=== PATIENT | female | born 1985 | race Caucasian/White ===

== ENCOUNTER 2019-12-18 09:57 | Emergency (ER) | payer BC, SELFPAY ==
[2019-12-18 10:09] VITALS: BP 130/72; PULSE 77; RESP 16; TEMP 36.4; O2SAT 100
--- NOTE | 2019-12-18 10:19 | ED.LOWEXIN ---
HPI - Extremity Injury (Lower) General Chief Complaint: Extremity Injury, Lower Stated Complaint: lt leg pain Time Seen by Provider: 12/18/19 10:19 Source: patient and RN notes reviewed History of Present Illness HPI Narrative: Patient is a 34-year-old female presents the urgent care with complaints of left pelvis pain that wraps around the left upper leg. Patient states that on December 09 she was having intercourse with her who pulled her left leg out and she heard a 3 loud pops . Patient states that she has been ambulating and running after 2 small children for the last 10 days without any difficulty. However, patient states she does have some left groin pain at times that wraps around the left upper leg, around to the buttocks. Patient ambulates without difficulty and is currently wearing platform boots. Range of motion to left leg/hip within normal limits. Patient has not been using anything for the pain. Denies any other strenuous activity or known injury. No other acute complaints. No acute distress noted. Patient read the plan of care. Related Data Allergies Allergy/AdvReac Type Severity Reaction Status Date / Time No Known Allergies Allergy Verified 12/18/19 10:09 Review of Systems Review of Systems: Narrative: CONSTITUTIONAL: Denies fever, chills, or sweats. EYES: Denies visual changes, redness, or discharge. ENT: Denies rhinorrhea, congestion, sore throat, or otalgia. CARDIOVASCULAR: Denies chest pain, palpitations, or edema. RESPIRATORY: Denies cough or dyspnea. GASTROINTESTINAL: Denies abdominal pain, nausea, vomiting, or diarrhea. GENITOURINARY: Denies dysuria or hematuria. SKIN: Denies rash or itching. MUSCULOSKELETAL: Denies back pain, joint pain, or myalgia. Reports of mild pain to the left groin/pelvic region that wraps around the left upper leg. NEUROLOGIC: Denies headache, numbness, or weakness. PSYCHIATRIC: Denies anxiety or depression. All other systems reviewed are negative, except as documented in HPI. PMFSH Comments At the time of my signature, I reviewed and agree with the nursing past medical, surgical, social, and family history. There is no relevant family history pertinent to the patient complaint. Exam Narrative: Exam Narrative: GENERAL: This is a well-nourished, well-developed patient, in no apparent distress. HEAD: normocephalic, atraumatic. EYES: PERRL. Sclera clear/white. Vision is grossly intact. EARS: External ears normal NOSE: External nose normal with no obvious nasal discharge THROAT: Mucous membranes moist NECK: Neck supple CARDIOVASCULAR: Regular rate and rhythm without murmurs, gallops, or rubs. RESPIRATORY: Clear to auscultation. Breath sounds equal bilaterally. No wheezes, rales, or rhonchi. SKIN: warm, intact with no suspicious lesions or rash, good texture and turgor. NEURO: awake, alert, and oriented to person, place and time. There were no obvious focal neurologic abnormalities. EXTREMITIES: No clubbing, cyanosis, or edema. No joint tenderness, effusion, or edema noted. No calf tenderness. Negative Homans sign bilaterally. No left pelvis tenderness, range of motion within normal limits. No tenderness to left hip. Ambulates without difficulty. Course Vital Signs Vital signs: Vital Signs Temperature 97.5 F L 12/18/19 10:09 Pulse Rate 77 12/18/19 10:09 Respiratory Rate 16 12/18/19 10:09 Blood Pressure 130/72 12/18/19 10:09 Pulse Oximetry 100 12/18/19 10:09 Temperature 97.5 F L 12/18/19 10:09 Pulse Rate 77 12/18/19 10:09 Respiratory Rate 16 12/18/19 10:09 Blood Pressure 130/72 12/18/19 10:09 Pulse Oximetry 100 12/18/19 10:09 Reviewed MDM - Extremity Injury (Lower) MDM Narrative Medical decision making narrative: Advised the patient to rest and avoid any strenuous activity or anything with repetitive motion such as elliptical, treadmill, stairmaster. Complete steroid regimen as prescribed. Use Flexeril as needed as a musc
== END 2019-12-18 10:53 | disposition home or self-care (01) ==
PROVIDERS: Emergency Provider Nurse Practitioner Family
DX: S76.212A Strain of adductor muscle, fascia and tendon of left thigh, initial encounter (principal); X50.9XXA Other and unspecified overexertion or strenuous movements or postures, initial encounter
CPT/HCPCS: 99203; G0463